=== PATIENT | male | born 1940 | race Two or more races ===

== ENCOUNTER 2023-12-03 12:43 | Emergency (ER) | payer OTHER ==
[~2023-12-03] VITALS: Ht 165.1 cm; Wt 63.5 kg
[2023-12-03] MEDS ORDERED: CARVEDILOL ER40 MG PO (12:52)
[2023-12-03] MEDS ORDERED: COZAAR25 MG PO (12:52)
[2023-12-03] MEDS ORDERED: CARAFATE1 GM PO (12:53)
[2023-12-03] MEDS ORDERED: FAMOtidine 10 MG/ML (4ML VIAL) IV STA (14:22)
[2023-12-03] MEDS ORDERED: METOCLOPRAMIDE HCL 5 MG/5 ML ML PO STA (14:23)
[2023-12-03] MEDS ORDERED: ONDANSETRON HCL 2 MG/ML VIAL IV ONE (14:30)
[2023-12-03 15:19] LABS: HEMATOCRIT 40.1 % (39.0-48.0); HEMOGLOBIN 13.4 g/dL (13-16.00); MEAN CELL VOLUME 84.3 fL (80.0-100.00); MEAN CORPUSCULAR HEMOGLOBIN 28.2 pg (27.00-32.0); MEAN CORPUSCULAR HGB CONC 33.5 g/dl (32.0-36.0); PLATELET COUNT 231 K/uL (150-450); RED BLOOD COUNT 4.76 M/uL (4.00-6.00); RED CELL DISTRIBUTION WIDTH 15.2 % (11.5-14.5)
[2023-12-03 15:42] LABS: CALCIUM 9.5 mg/dL (8.5-10.1); CREATININE SERUM 1.67 mg/dL (0.70-1.30); GFR 39.68; POTASSIUM 4.72 mEq/L (3.5-5.1)
[2023-12-03] MEDS ORDERED: 0.9 % SODIUM CHLORIDE 1,000 ML IV ONE (17:15)
[2023-12-03 17:26] LABS: AMYLASE 84 U/L (25-115); LIPASE 40 U/L (13-75)
[2023-12-03] MEDS ORDERED: PANTOPRAZOLE SODIUM 40 MG/VIAL VIAL IV PUSH ONE (20:30)
== END 2023-12-03 20:43 | disposition home or self-care (01) ==
LOC: ER 12:44
PROVIDERS: General Practice
DX: K29.70 Gastritis, unspecified, without bleeding (principal); E11.9 Type 2 diabetes mellitus without complications; I10 Essential (primary) hypertension; I50.9 Heart failure, unspecified; Z88.0 Allergy status to penicillin
CPT/HCPCS: 36415; 76700; 93005; 96365; 96366; 99284; J2405; J2765; J3490